=== PATIENT | male | born 1955 | race Caucasian/White ===

== ENCOUNTER → 2024-11-17 14:31 | Outpatient (REF) | payer MEDICARE, SELFPAY | LOC: PAVMRI 14:31 | PROVIDERS: ATTENDING PHYSICIAN Physical Medicine & Rehabilitation; FAMILY PHYSICIAN Family Medicine | DX: M54.16 Radiculopathy, lumbar region (principal); M54.17 Radiculopathy, lumbosacral region | CPT/HCPCS: 72148 ==